=== PATIENT | female | born 1960 | race Caucasian/White ===

== ENCOUNTER → 2020-12-13 | Outpatient (CLI) | payer OTHER ==
--- NOTE | 2020-12-13 17:53 | RAD ---
Two-view chest dated 12/13/2020. No comparison available. CLINICAL INDICATION: Shortness breath. COPD. FINDINGS: PA and lateral views obtained. Heart and mediastinal contours are within normal limits. Lungs are adolfo ewhat hyperinflated but otherwise clear. No consolidation or pleural effusion. No pneumothorax. Surgi tiana clips at the left axilla. IMPRESSION: No acute radiographic abnormality. Electronically signed by: Abebe Mendosa MD (12/13/2020 5:50 PM) [id number]
== END ==
LOC: RAD 10:27
PROVIDERS: ATTEND Surgery
DX: J44.9 Chronic obstructive pulmonary disease, unspecified (principal); R06.02 Shortness of breath; E11.9 Type 2 diabetes mellitus without complications
CPT/HCPCS: 71046